=== PATIENT | male | born 1955 | race Caucasian/White ===

== ENCOUNTER 2019-10-30 07:52 | Outpatient (CLI) | payer BC, OTHER ==
[2019-10-30 14:26] LABS: Hemoglobin 16.3 g/dL (14.0-18.0); Mean Corpuscular HGB CONC 33.2 g/dL (32.0-36.0); Mean Corpuscular Hemoglobin 29.7 pg (27.0-31.0); Mean Corpuscular Volume 89.4 fL (78.0-98.0); Mean Platelet Volume 7.8 fL (7.4-10.4); Platelet Count 267 thou/uL (130-400); RBC Distribution Width 12.3 % (11.5-14.5); Red Blood Cell (RBC) Count 5.49 mill/uL (4.70-6.10); White Blood Cell (WBC) Count 11.8 thou/uL (4.8-10.8)
[2019-10-30 14:42] LABS: INR-International Normal Ratio 0.9; Prothrombin Time 11.9 sec (12.0-14.7)
[2019-10-30 14:43] LABS: PTT 33.7 sec (22.9-36.1)
[2019-10-30 14:47] LABS: Anion Gap 15 mmol/L (10-20); BUN (Urea Nitrogen) 25 mg/dL (8.4-25.7); Calc. Creatinine Clearance 0 mL/min (70-130); Calcium 9.4 mg/dL (7.8-10.44); Carbon Dioxide 21 mmol/L (23-31); Chloride 106 mmol/L (98-107); Estimated GFR-MDRD 69; Glucose 108 mg/dL (80-115); Potassium 5.4 mmol/L (3.5-5.1); Sodium 137 mmol/L (136-145)
[2019-10-31 13:02] LABS: SARS-CoV-2 MS2 Positive; SARS-CoV-2 N Gene Negative; SARS-CoV-2 S Gene Negative; SARS-CoV-2 by NAA Not Detected (NotDetected); SARS-CoV-2 orf1ab Negative
--- NOTE | 2019-10-31 20:53 | EKG ---
Test Reason : Blood Pressure : / mmHG Vent. Rate : 053 BPM Atrial Rate : 053 BPM P-R Int : 164 ms QRS Dur : 098 ms QT Int : 442 ms P-R-T Axes : 063 078 067 degrees QTc Int : 414 ms Sinus bradycardia Otherwise normal ECG No previous ECGs available Confirmed by Joanne ORDOÑEZ ([id number]) on 10/31/2019 8:52:59 PM Referred By: ELY Confirmed By:Joanne ORDOÑEZ
== END 2019-10-30 07:53 | disposition home or self-care (01) ==
LOC: LABBT 07:52
PROVIDERS: ATTEND Neurological Surgery
DX: Z01.818 Encounter for other preprocedural examination (principal); M54.16 Radiculopathy, lumbar region; M48.061 Spinal stenosis, lumbar region without neurogenic claudication; Z20.828 Contact with and (suspected) exposure to other viral communicable diseases
CPT/HCPCS: 80048; 85027; 85610; 85730; 87635; 93005; 93010; U0003

== ENCOUNTER 2019-11-02 07:43 | Day surgery (SDC) | payer BC ==
[2019-10-30 13:51] VITALS: BMI 34.4
[2019-11-02] MEDS ORDERED: Thrombin 5000 UNITS/5 ML VIAL ONE (09:52)
[2019-11-02] MEDS ORDERED: Fentanyl 100 MCG/2 ML VIAL ONE ×4 (10:32→14:31)
[2019-11-02] MEDS ORDERED: Glycopyrrolate 0.2 MG/ML 5 ML SYRINGE ONE (12:16)
[2019-11-02] MEDS ORDERED: Dexamethasone 20 MG/5 ML VIAL ONE (12:16)
[2019-11-02] MEDS ORDERED: PROPOFOL 200 MG/20 ML VIAL ONE (12:16)
[2019-11-02] MEDS ORDERED: Rocuronium Bromide 10 MG/ML (10ML VIAL) ONE (12:16)
[2019-11-02] MEDS ORDERED: Lidocaine 1% PF 5 ML VIAL ONE (12:16)
[2019-11-02] MEDS ORDERED: HYDROcodone/Acetaminophen 7.5/325 mg Tablet PO PRN (14:14)
[2019-11-02] MEDS ORDERED: Mag-Al 1200 mg/1200 mg/30 ML UDCUP PO PRN (14:14)
[2019-11-02] MEDS ORDERED: Fleet Enema 133 ML BOT PR PRN (14:14)
[2019-11-02] MEDS ORDERED: traMADol HCl 50 MG TAB PO PRN (14:14)
[2019-11-02] MEDS ORDERED: Acetaminophen 325 MG TAB PO PRN (14:14)
[2019-11-02] MEDS ORDERED: Milk Of Magnesia 30 ML UDCUP PO PRN (14:14)
[2019-11-02] MEDS ORDERED: diphenhydrAMINE 25 MG CAP PO PRN (14:14)
[2019-11-02] MEDS ORDERED: Ondansetron PF 4 MG/2 ML Vial IVP PRN (14:14)
[2019-11-02] MEDS ORDERED: Acetaminophen/Codeine 30-300mg Tablet PO PRN (14:14)
[2019-11-02] MEDS ORDERED: Bisacodyl 10 MG SUPP PR PRN (14:14)
[2019-11-02] MEDS ORDERED: tiZANidine HCl 4 MG TAB PO PRN (14:14)
[2019-11-02] MEDS ORDERED: Ketorolac Tromethamine 30 MG/ML VIAL IVP PRN (14:17)
[2019-11-02] MEDS ORDERED: Promethazine HCl 25 MG/ML VIAL ONE (14:35)
[2019-11-02] MEDS ORDERED: Ondansetron PF 4 MG/2 ML Vial ONE (14:39)
[2019-11-02] MEDS: HYDROcodone/Acetaminophen 7.5/325 mg Tablet PO PRN ×2 (16:09→20:19)
[2019-11-02] MEDS: CEFAZOLIN 2 GM in Premix Bag 1 BAG IVPB SCH ×2 (16:13→23:39)
[2019-11-02] MEDS: Sodium Chloride 0.9% 1,000 ML IV SCH (17:13)
[2019-11-02] MEDS: Ramipril 5 MG CAP PO SCH ×2 (20:17→20:28)
[2019-11-02] MEDS ORDERED: Atorvastatin Calcium 40 MG TAB PO SCH (21:00)
[2019-11-02] MEDS ORDERED: Icosapent Ethyl 1 GM CAPSULE PO SCH (21:00)
[2019-11-03] MEDS: HYDROcodone/Acetaminophen 7.5/325 mg Tablet PO PRN ×4 (00:24→14:29)
[2019-11-03] MEDS: Sodium Chloride 0.9% 1,000 ML IV SCH (05:49)
[2019-11-03 06:02] LABS: #Lymphocytes 2.4 thou/uL (1.20-3.40); #Monocytes 1.8 thou/uL (0.11-0.59); #Neutrophils 12.9 thou/uL (1.40-6.50); %Basophils 0.1 % (0.0-1.0); %Eosinophils 0.2 % (0.0-10.0); %Lymphocytes 13.9 % (21.0-51.0); %Monocytes 10.4 % (0.0-10.0); %Neutrophils 75.4 % (42.0-75.0); Hemoglobin 12.6 g/dL (14.0-18.0); Mean Corpuscular Hemoglobin 30.6 pg (27.0-31.0); Mean Platelet Volume 7.4 fL (7.4-10.4); Platelet Count 236 thou/uL (130-400); RBC Distribution Width 12.2 % (11.5-14.5); Red Blood Cell (RBC) Count 4.11 mill/uL (4.70-6.10); White Blood Cell (WBC) Count 17.1 thou/uL (4.8-10.8)
[2019-11-03 06:31] LABS: Anion Gap 12 mmol/L (10-20); BUN (Urea Nitrogen) 18 mg/dL (8.4-25.7); Calc. Creatinine Clearance 113 mL/min (70-130); Calcium 8.6 mg/dL (7.8-10.44); Carbon Dioxide 26 mmol/L (23-31); Chloride 105 mmol/L (98-107); Estimated GFR-MDRD 74; Glucose 150 mg/dL (80-115); Potassium 4.6 mmol/L (3.5-5.1); Sodium 138 mmol/L (136-145)
[2019-11-03 07:38] VITALS: TEMP 98.4
[2019-11-03] MEDS ORDERED: Empagliflozin 10 MG TAB PO SCH (09:00)
[2019-11-03 11:05] VITALS: BP 133/64
--- NOTE | 2019-11-03 13:28 | PRG ---
DATE OF SERVICE: 11/03/2019 Mr. Azar is doing well, postoperative day 1, multilevel lumbar laminectomies. Drain output has been minimal. We will remove it. He is already ambulating better per his with improved dorsiflexor strength. We have made arrangements for discharge and we will discharge him home. Job ID: [id number]
--- NOTE | 2019-11-05 14:26 | OP ---
DATE OF PROCEDURE: 11/02/2019 PREPROCEDURE DIAGNOSIS: Multilevel lumbar stenosis with low back and leg pain. POSTPROCEDURE DIAGNOSIS: Multilevel lumbar stenosis with low back and leg pain. [employer]: Chel Malagon PA-C PROCEDURE PERFORMED: L2-L3, L3-L4, L4-L5, and L5-S1 laminectomies, partial facetectomies, and foraminotomies. DESCRIPTION OF PROCEDURE: After informed consent was obtained from the patient, the patient was brought to the OR. Proper patient, pause, and identification were carried out. He was placed under excellent general endotracheal anesthesia and positioned prone on the OR table. All appropriate points were padded. We identified the L2 through S1 dorsal spines and lamina. A linear edie was made over this region. This area was sterilely cleansed, prepared, and draped. Proper patient, pause, and identification were carried out. We then identified the dorsal spines and lamina. Localization film confirmed our area of interest. We then performed L2 through S1 laminectomies, partial facetectomies, and foraminotomies. We had excellent decompression of the common dural tube and nerve roots. Copious irrigation occurred throughout as did maximizing hemostasis. The wound was then closed in anatomic layers following sprinkling of vancomycin powder. The patient then emerged from anesthesia. Job ID: [id number]
== END 2019-11-03 14:46 | disposition home or self-care (01) ==
LOC: SDC 07:43 → SJJU 14:14 → SDC 11-03 14:46
PROVIDERS: ATTEND Surgery
PROC: 00NY0ZZ Release Lumbar Spinal Cord, Open Approach (ICD-10-PCS; principal; 2019-11-02)
DX: M48.062 Spinal stenosis, lumbar region with neurogenic claudication (principal); M54.16 Radiculopathy, lumbar region; I10 Essential (primary) hypertension; E78.5 Hyperlipidemia, unspecified; F17.220 Nicotine dependence, chewing tobacco, uncomplicated; Z79.82 Long term (current) use of aspirin; Z79.899 Other long term (current) drug therapy; Z88.5 Allergy status to narcotic agent
CPT/HCPCS: 36415; 76000; 80048; 85025; J0690; J1100; J2405; J2550; J2704; J3010; J3370

== ENCOUNTER 2023-03-16 14:26 | Outpatient (CLI) | payer BC ==
[2023-03-16 15:50] LABS: Anion Gap 11 mmol/L (10-20); BUN (Urea Nitrogen) 28 mg/dL (8.4-25.7); Calc. Creatinine Clearance 0 mL/min (70-130); Calcium 8.9 mg/dL (7.8-10.44); Carbon Dioxide 25 mmol/L (23-31); Chloride 108 mmol/L (98-107); Estimated GFR 93; Glucose 81 mg/dL (80-115); Sodium 140 mmol/L (136-145)
[2023-03-16 16:01] LABS: Hematocrit 43.1 % (38.8-50.0); Hemoglobin 14.6 g/dL (13.5-17.5)
== END 2023-03-16 14:27 | disposition home or self-care (01) ==
LOC: LABBT 14:26
PROVIDERS: ATTEND Specialist
DX: Z01.818 Encounter for other preprocedural examination (principal); J38.3 Other diseases of vocal cords
CPT/HCPCS: 80048; 85014; 85018; 93005; 93010

== ENCOUNTER 2023-03-24 05:57 | Day surgery (SDC) | payer BC ==
[2023-03-16 14:57] VITALS: BMI 31.7
[2023-03-24] MEDS ORDERED: EPINEPHrine 1 MG/ML VIAL ONE ×2 (06:56→09:03)
[2023-03-24] MEDS ORDERED: PROPOFOL 20 ML ONE (07:41)
[2023-03-24] MEDS ORDERED: fentaNYL PF 100 MCG/2 ML SYRINGE ONE (07:41)
[2023-03-24] MEDS ORDERED: Lidocaine 1% PF 5 ML VIAL ONE (07:42)
[2023-03-24] MEDS ORDERED: Rocuronium Bromide 10 MG/ML (10ML VIAL) ONE (07:42)
[2023-03-24] MEDS ORDERED: Dexamethasone 20 MG/5 ML VIAL ONE (07:55)
[2023-03-24] MEDS ORDERED: Ondansetron PF 4 MG/2 ML Vial ONE (07:55)
[2023-03-24] MEDS ORDERED: ePHEDrine Sulfate 50 MG/10 ML VIAL ONE (09:44)
[2023-03-24] MEDS ORDERED: Bupivacaine 0.25% HCL 30 ML VIAL ONE (09:51)
[2023-03-24] MEDS ORDERED: SUGAMMADEX SODIUM 200 MG/2 ML VIAL ONE ×2 (09:52→12:31)
[2023-03-24] MEDS ORDERED: HYDROcodone/Acetaminophen 5/325 mg Tablet ONE (11:25)
== END 2023-03-24 12:45 | disposition home or self-care (01) ==
LOC: SDC 05:57
PROVIDERS: ATTEND Specialist
PROC: 0CBV8ZX Excision of Left Vocal Cord, Via Natural or Artificial Opening Endoscopic, Diagnostic (ICD-10-PCS; principal; 2023-03-24)
PROC: 0HX1XZZ Transfer Face Skin, External Approach (ICD-10-PCS; principal; 2023-03-24)
DX: J38.3 Other diseases of vocal cords (principal); C44.319 Basal cell carcinoma of skin of other parts of face; K21.9 Gastro-esophageal reflux disease without esophagitis; J38.2 Nodules of vocal cords; H91.90 Unspecified hearing loss, unspecified ear; R49.0 Dysphonia; I10 Essential (primary) hypertension; M19.90 Unspecified osteoarthritis, unspecified site; E11.9 Type 2 diabetes mellitus without complications; Z88.5 Allergy status to narcotic agent; Z98.890 Other specified postprocedural states; Z87.891 Personal history of nicotine dependence; Z90.49 Acquired absence of other specified parts of digestive tract; Z96.653 Presence of artificial knee joint, bilateral
CPT/HCPCS: 88305; J0171; J0665; J1100; J2405; J2704